=== PATIENT | male | born 1930 | race Caucasian/White ===

== ENCOUNTER 2016-08-22 13:35 | Inpatient (IN) | payer MEDICARE ==
[~2016-08-22] VITALS: Ht 180.3 cm; Wt 65.5 kg
[2016-08-22 16:00] VITALS: BP 122/73
--- NOTE | 2016-08-22 16:34 | PDOC2 ---
CARDIAC CONSULT DATE OF CONSULT Date of Consult DATE: 08/22/16 TIME: 16:14 REASON FOR CONSULT Reason for Consult: ACS/CHF HISTORY OF PRESENT ILLNESS HISTORY OF PRESENT ILLNESS 86 yo male reports chest pain that kept him up all night last night until finally being relieved at [facility] with one SLNTG. Pain free now. Reports he has had progressive angina with exertion over the last several weeks, along with orthopnea and PND. He apparently had a cardiac work-up last year at [place] and was told that he has "an enlarged heart" and might "need a stent", but he refused further eval based upon his CKD and the risk of ALIE after cath. The patient has no prior history or record of care here or at [facility]. PAST MEDICAL HISTORY Cardiovascular: Other (Cardiomyopathy NOS) Renal/: Chronic renal failure (Follows with outside Nephro) SOCIAL HISTORY Smoke: No ROS PSYCHOLOGICAL ROS: YES: Memory difficulties Cardiovascular: yes Chest Pain, yes Orthopnea, yes Paroxysmal Noc. Dyspnea, No Edema, No Lt Headedness, No Palpitations PHYSICAL EXAM General: Alert, Cooperative, No acute distress Heart: Other (Early systolic murmur, louder with PVC, at RUSB. Soft apical diastolic murmur. PMI diminished. No RV heave.) Abdomen: Normal bowel sounds, Soft Extremities: No edema Skin: No significant lesion Neuro: Other (No focal deficit) EKG EKG ST at 100, anterior and apical q waves with ST elevation, denoting age indeterminate ME ASSESSMENT/PLAN ASSESSMENT/PLAN 1) Troponin positive ACS 2) CHF, probably systolic 3) CKD stage 3 4) Sinus tachycardia --Will initiate ACS protocol with anticoagulation and DAPT. Will use heparin drip given CKD. No current chest pain so EKG indicates completed ME and/or cardiomyopathy. Will cath urgently if has recurrent refractory ischemic signs/ symptoms. Troponin peaked at [facility] so no need to follow serially here, unless there is recurrent ischemia suspicion. --Beta veto given his relative tachycardia. Await home med list from daughter. Suspect he is on a beta veto and may be demonstrating beta veto "withdrawal." --Obtain echo. --Cardiac diet with Na < 2 grams per day --Nephro consult in light of probable invasive cardiac eval, contrast load, and CKD. Will defer diuresis decisions to them. Does not appear excessively volume overloaded now after lasix at [facility]. Total time with patient, including more than half counseling on his condition and therapeutic options, coordinating care on the unit, discussing with nursing , family and ED Dr at [facility], is 55 minutes. Problems: BERRY RICO DO Aug 22, 2016 16:34
[2016-08-22] MEDS ORDERED: HEPARIN 25,000UTS/500ML PREMIX 500 ML IV ONE (16:45)
[2016-08-22] MEDS ORDERED: TICAGRELOR 90 MG TABLET. PO SCH (17:00)
[2016-08-22] MEDS ORDERED: HEPARIN 25,000UTS/500ML PREMIX 500 ML IV PRN ×2 (17:15→17:30)
[2016-08-22] MEDS ORDERED: ASPIRIN 81 MG TAB.CHEW PO ONE (17:30)
--- NOTE | 2016-08-22 17:42 | PDOC1 ---
History and Physical Date of Admission Date of Admission 08/22/16 Identification/Chief Complaint Chief Complaint chest pain Problems: Source Source: Chart review, Patient History of Present Illness History of Present Illness 86yo M, was sent from [facility] for high troponin. pt has not fu with any PCP and not taking meds for 3 years. was seen for chest pain before, was told may need a "stent" , but didnot get it since CKD. he has been having chest pain for 2 days, substernal, sharp, no radiation, no nausea or diaphoresis, no radiation. + mild sob with the chest pain. Troponin was 1.2 in [facility], now pain free with nitro in [facility]. Past Medical History Cardiovascular: HTN, Other (Cardiomyopathy NOS) Renal/: Chronic renal failure (Follows with outside Nephro) Family History Family History: Diabetes Social History Smoke: No ALCOHOL: none Drugs: None Current Medications Current Medications Current Medications Medications (Trade) Dose Ordered Sig/Dylan Start Time Stop Time Status Last Admin Dose Admin Aspirin (Children'S Aspirin) 81 mg DAILYWBKFT 08/23/16 08:00 Aspirin 324 mg 324 mg 1X ONCE 08/22/16 17:30 08/22/16 17:31 DC Heparin Sodium/ Dextrose 500 ml @ 0 mls/hr CONT PRN 08/22/16 17:30 Metoprolol Tartrate (Lopressor) 25 mg BID 08/22/16 17:00 Ticagrelor (Brilinta) 90 mg BID 08/22/16 17:00 Cancel Allergies Allergies Allergies Coded Allergies Type Severity Reaction Last Updated Verified No Known Drug Allergies 08/22/16 No ROS Review of System CONSTITUTIONAL: No fever or chills EYES: No recent changes SKIN: No rash or itching CARDIOVASCULAR: No chest pain, syncope, palpitations, or edema RESPIRATORY: No SOB or cough GASTROINTESTINAL: No nausea, vomiting or abdominal pain NEUROLOGICAL: No headaches or weakness ENDOCRINE: No cold or heat intolerance GENITOURINARY: No urgency or frequency of urination MUSCULOSKELETAL: No back pain or joint pain LYMPHATICS: No enlarged lymph nodes PSYCHIATRIC: No anxiety or depression Physical Exam Physical Exam GEN.: No apparent distress. Alert and oriented. HEENT: Head is normocephalic, atraumatic NECK: Supple. LUNGS: Clear to auscultation. HEART: RRR, S1, S2 present. Peripheral pulses intact ABDOMEN: Soft, nontender. Positive bowel sounds. EXTREMITIES: Without any cyanosis. NEUROLOGIC: Normal speech, normal tone PSYCHIATRIC: Normal affect, normal mood. SKIN: No ulcerations VTE Prophylaxis Ordered VTE Prophylaxis Devices: Yes VTE Pharmacological Prophylaxi: No Assessment/Plan Assessment/Plan 1 . CHEST PAIN, NSTEMI 2. possible chf 3. h/o dm2 4. htn 5. ckd3 plan: 1. fu with card, on metoprolol, asa, brilinda now heparin drip 2. check labs, ce, hba1c. 3. echo 4. need cath likely 5. renal consult RACHANA JAMES MD Aug 22, 2016 17:42
[2016-08-22] MEDS ORDERED: ONDANSETRON PF 4 MG/2 ML VIAL. IV PRN (17:45)
[2016-08-22] MEDS: METOPROLOL TART IMMED RELEASE 25 MG TABLET PO SCH (17:45)
[2016-08-22] MEDS ORDERED: ACETAMINOPHEN 325 MG TABLET. PO PRN (17:45)
[2016-08-22] MEDS ORDERED: HYDROCODONE/APAP 5/325MG TABLET. PO PRN (17:45)
[2016-08-22] MEDS ORDERED: HEPARIN for IV BOLUS 10,000 UNIT/10 ML VIAL. IV PRN (18:00)
[2016-08-22] MEDS ORDERED: TICAGRELOR 90 MG TABLET. PO ONE (18:00)
[2016-08-22] MEDS: HEPARIN 25,000UTS/500ML PREMIX 500 ML IV PRN (18:01)
--- NOTE | 2016-08-22 18:29 | PDOC2 ---
CONSULT Date of Consult Date of Consult DATE: 08/22/16 TIME: 18:27 Past Medical History Cardiovascular: HTN, Other (Cardiomyopathy NOS) Renal/: Chronic renal failure (Follows with outside Nephro) Family History Family History: Diabetes Social History No ALCOHOL: none Drugs: None Current Problem List Problem List Problems Medical Problems: (1) Chest pain Status: Acute Current Medications Current Medications Current Medications Heparin Sodium/ Dextrose 500 ml @ 0 mls/hr 1X ONCE IV ; Start 08/22/16 at 16:45 ; Stop 08/22/16 at 16:46; Status Cancel Metoprolol Tartrate (Lopressor) 25 mg BID PO Last administered on 08/22/16 17: 45; Start 08/22/16 at 17:00 Ticagrelor (Brilinta) 90 mg BID PO ; Start 08/22/16 at 17:00; Status Cancel Aspirin (Children'S Aspirin) 81 mg DAILYWBKFT PO ; Start 08/23/16 at 08:00 Aspirin 324 mg 324 mg 1X ONCE PO Last administered on 08/22/16 17:44; Start 08/22/16 at 17:30; Stop 08/22/16 at 17:31; Status DC Heparin Sodium/ Dextrose 500 ml @ 0 mls/hr CONT PRN IV SEE I/O RECORD; Start at 17:15; Status Cancel Heparin Sodium/ Dextrose 500 ml @ 0 mls/hr CONT PRN IV SEE I/O RECORD; Start at 17:30; Status Cancel Ticagrelor (Brilinta) 90 mg BID@05,17 PO ; Start 08/23/16 at 05:00 Ticagrelor 180 mg 180 mg 1X ONCE PO Last administered on 08/22/16 17:44; Start 08/22/16 at 18:00; Stop 08/22/16 at 18:01; Status DC Heparin Sodium/ Dextrose 500 ml @ 0 mls/hr CONT PRN IV SEE I/O RECORD Last administered on 08/22/16 18:01; Start 08/22/16 at 18:00 Heparin Sodium (Porcine) 1,650 unit PRN Q6HRS PRN IV FOR UFH LEVEL LESS THAN 0.2; Start 08/22/16 at 18:00 Ondansetron HCl (Zofran) 4 mg PRN Q6HRS PRN IV NAUSEA/VOMITING; Start 08/22/16 at 17:45 Morphine Sulfate 1 mg PRN Q1HR PRN IV PAIN; Start 08/22/16 at 17:45 Acetaminophen/ Hydrocodone Bitart (Lortab 5/325) 1 tab PRN Q4HRS PRN PO MILD PAIN, 2ND CHOICE; Start 08/22/16 at 17:45 Acetaminophen (Tylenol) 650 mg PRN Q6HRS PRN PO Headaches, Temp > 101.5F; Start 08/22/16 at 17:45 Allergies Allergies: Coded Allergies: No Known Drug Allergies (Unverified , 08/22/16) Vitals VITALS Vital Signs Date Time Temp Pulse Resp B/P Pulse Ox O2 Delivery O2 Flow Rate FiO2 08/22/16 17:45 112 122/73 Assessment/Plan Assessment/Plan RENAL CONSULT / FABIENNE Dictated. # [id number] MELANIE LOVING MD Aug 22, 2016 18:29
[2016-08-22 19:04] LABS: CHOLESTEROL/HDL RATIO 2.9
[2016-08-22 19:25] LABS: CKMB INDEX 4.2 % (0-4); CKMB MASS 4.4 ng/mL (0.0-3.6)
[2016-08-22 19:45] VITALS: BP 134/94
[2016-08-22 19:46] LABS: ALBUMIN 3.7 g/dL (3.4-5.0); TOTAL PROTEIN 7.4 g/dL (6.4-8.2)
[2016-08-22 19:47] LABS: CALCIUM 9.2 mg/dL (8.5-10.1); CREATININE 1.8 mg/dL (0.7-1.3); POTASSIUM 4.4 mmol/L (3.5-5.1); TOTAL BILIRUBIN 0.9 mg/dL (0.2-1.0)
[2016-08-22] MEDS: MORPHINE SULFATE 2 MG/ML DISP.SYRIN. IV PRN ×2 (20:14→21:34)
[2016-08-22 20:33] LABS: RED BLOOD COUNT 4.22 x10^6/uL (4.30-5.70); WHITE BLOOD COUNT 11.3 x10^3/uL (4.0-11.0)
[2016-08-22 20:34] LABS: BASO % 1 % (0-3); EOS % 1 % (0-3); HEMATOCRIT 38.4 % (39.0-53.0); HEMOGLOBIN 12.5 g/dL (13.0-17.5); LYMPH # 2.6 x10^3/uL (1.0-4.8); LYMPH % 23 % (24-48); MEAN CORPUSCULAR HEMOGLOBIN 30 pg (25-35); MEAN CORPUSCULAR HGB CONC 33 g/dL (31-37); MEAN CORPUSCULAR VOLUME 91 fL (79-100); MONO % 10 % (0-9); NEUT % 66 % (31-73); PLATELET COUNT 109 x10^3/uL (140-400); RED CELL DISTRIBUTION WIDTH 14.2 % (11.5-14.5)
[2016-08-22 20:35] LABS: BASO # 0.1 x10^3/uL (0.0-0.2)
[2016-08-22 20:38] LABS: PLT ESTIMATE DECREASED (ADEQUATE)
[2016-08-22] MEDS: ATORVASTATIN CALCIUM 40 MG TABLET. PO SCH (20:48)
[2016-08-22] MEDS ORDERED: NITROGLYCERIN PREMIX 250 ML IV PRN (22:15)
[2016-08-22 23:08] VITALS: BP 168/100
--- NOTE | 2016-08-22 23:28 | EKG ---
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
[2016-08-22 23:35] VITALS: BP 155/80
[2016-08-23] VITALS (9 sets, daily range): BP systolic 105–153; BP diastolic 62–90
[2016-08-23] MEDS: HEPARIN 25,000UTS/500ML PREMIX 500 ML IV PRN (03:16)
[2016-08-23] MEDS: TICAGRELOR 90 MG TABLET. PO SCH ×2 (05:00→17:15)
[2016-08-23] MEDS: METOPROLOL TART IMMED RELEASE 25 MG TABLET PO SCH ×3 (08:41→17:15)
[2016-08-23] MEDS: ASPIRIN 81 MG TAB.CHEW PO SCH (08:42)
--- NOTE | 2016-08-23 13:01 | PDOC ---
CARDIO Progress Notes Subjective Comments: Episode of CP last night requiring Nitrodrip. Able to d/c drip this am. Vitals Vitals Vital Signs Date Time Temp Pulse Resp B/P Pulse Ox O2 Delivery O2 Flow Rate FiO2 08/23/16 11:34 98.3 96 18 105/62 95 Room Air 98.3 08/23/16 07:58 2.0 Weight Weight [ ] Input and Output Intake and Output Intake and Output 08/23/16 07:00 Intake Total 1055.2 ml Output Total 625 ml Balance 430.2 ml Intake Oral 850 ml IV Total 205.2 ml Output Urine Total 625 ml # Voids 1 Laboratory Labs Laboratory Tests Test 08/22/16 17:39 08/22/16 18:00 08/22/16 18:15 08/23/16 01:00 Triglycerides Level 69mg/dL (0-150) Cholesterol Level 207mg/dL (0-200) LDL Cholesterol, Calculated 122mg/dL (0-100) VLDL Cholesterol, Calculated 14mg/dL (0-40) HDL Cholesterol 71mg/dL (40-60) Cholesterol/HDL Ratio 2.9 Sodium Level 143mmol/L (136-145) Potassium Level 4.4mmol/L (3.5-5.1) Chloride Level 105mmol/L (98-107) Carbon Dioxide Level 24mmol/L (21-32) Anion Gap 14 (6-14) Blood Urea Nitrogen 37mg/dL (8-26) Creatinine 1.8mg/dL (0.7-1.3) Estimated GFR (Cockcroft-Gault) 36.0 BUN/Creatinine Ratio 21 (6-20) Glucose Level 114mg/dL (70-99) Calcium Level 9.2mg/dL (8.5-10.1) Total Bilirubin 0.9mg/dL (0.2-1.0) Aspartate Amino Transf (AST/SGOT) 28U/L (15-37) Alanine Aminotransferase (ALT/SGPT) 21U/L (16-63) Alkaline Phosphatase 82U/L (46-116) Creatine Kinase 105U/L (39-308) Creatine Kinase MB (Mass) 4.4ng/mL (0.0-3.6) Creatine Kinase MB Relative Index 4.2% (0-4) Total Protein 7.4g/dL (6.4-8.2) Albumin 3.7g/dL (3.4-5.0) Albumin/Globulin Ratio 1.0 (1.0-1.7) White Blood Count 11.3x10^3/uL (4.0-11.0) Red Blood Count 4.22x10^6/uL (4.30-5.70) Hemoglobin 12.5g/dL (13.0-17.5) Hematocrit 38.4% (39.0-53.0) Mean Corpuscular Volume 91fL (79-100) Mean Corpuscular Hemoglobin 30pg (25-35) Mean Corpuscular Hemoglobin Concent 33g/dL (31-37) Red Cell Distribution Width 14.2% (11.5-14.5) Platelet Count 109x10^3/uL (140-400) Neutrophils (%) (Auto) 66% (31-73) Lymphocytes (%) (Auto) 23% (24-48) Monocytes (%) (Auto) 10% (0-9) Eosinophils (%) (Auto) 1% (0-3) Basophils (%) (Auto) 1% (0-3) Neutrophils # (Auto) 7.4x10^3uL (1.8-7.7) Lymphocytes # (Auto) 2.6x10^3/uL (1.0-4.8) Monocytes # (Auto) 1.2x10^3/uL (0.0-1.1) Eosinophils # (Auto) 0.1x10^3/uL (0.0-0.7) Basophils # (Auto) 0.1x10^3/uL (0.0-0.2) Platelet Estimate Decreased (ADEQUATE) Giant Platelets Mod Troponin I Quantitative 0.964ng/mL (0.000-0.055) Heparin Anti-Xa Act, Unfractionated 0.12IU/mL (0.30-0.70) Test 08/23/16 10:00 Heparin Anti-Xa Act, Unfractionated 0.44IU/mL (0.30-0.70) Physical Exam Other Exams No change compared to yesterday. Assessment Assessment Troponin positive ACS Cardiomyopathy Plan Plan As outlined in consult. Plan cath tomorrow. Appreciate nephro input. BERRY RICO DO Aug 23, 2016 13:01
[2016-08-23] MEDS: MORPHINE SULFATE 2 MG/ML DISP.SYRIN. IV PRN ×2 (14:06→17:17)
--- NOTE | 2016-08-23 14:58 | PDOC ---
PROGRESS NOTES Chief Complaint Chief Complaint 1 . CHEST PAIN, NSTEMI 2. possible chf 3. h/o dm2 4. htn 5. ckd3 6. AMS, sundown syndrome possile with mild dementia? plan: 1. fu with card, on metoprolol, asa, brilinda now heparin drip, nitro drip 2. check labs, ce, hba1c. 3. echo 4. need cath likely 5. renal consult neuro consult DNR History of Present Illness History of Present Illness hallcucination today AMS last night with confusion on heparin drip chest pain again last night on nitro drip Vitals Vitals Vital Signs Date Time Temp Pulse Resp B/P Pulse Ox O2 Delivery O2 Flow Rate FiO2 08/23/16 14:36 16 Room Air 08/23/16 14:06 2.0 08/23/16 11:34 98.3 96 105/62 95 98.3 Physical Exam General: Alert, Cooperative, No acute distress Heart: Regular rate, Other (Early systolic murmur, louder with PVC, at RUSB. Soft apical diastolic murmur. PMI diminished. No RV heave.) Lungs: Clear Abdomen: Normal bowel sounds, Soft Extremities: No edema Skin: No significant lesion Labs LABS Laboratory Tests Test 08/22/16 17:39 08/22/16 18:00 08/22/16 18:15 08/23/16 01:00 Triglycerides Level 69mg/dL (0-150) Cholesterol Level 207mg/dL (0-200) LDL Cholesterol, Calculated 122mg/dL (0-100) VLDL Cholesterol, Calculated 14mg/dL (0-40) HDL Cholesterol 71mg/dL (40-60) Cholesterol/HDL Ratio 2.9 Sodium Level 143mmol/L (136-145) Potassium Level 4.4mmol/L (3.5-5.1) Chloride Level 105mmol/L (98-107) Carbon Dioxide Level 24mmol/L (21-32) Anion Gap 14 (6-14) Blood Urea Nitrogen 37mg/dL (8-26) Creatinine 1.8mg/dL (0.7-1.3) Estimated GFR (Cockcroft-Gault) 36.0 BUN/Creatinine Ratio 21 (6-20) Glucose Level 114mg/dL (70-99) Calcium Level 9.2mg/dL (8.5-10.1) Total Bilirubin 0.9mg/dL (0.2-1.0) Aspartate Amino Transf (AST/SGOT) 28U/L (15-37) Alanine Aminotransferase (ALT/SGPT) 21U/L (16-63) Alkaline Phosphatase 82U/L (46-116) Creatine Kinase 105U/L (39-308) Creatine Kinase MB (Mass) 4.4ng/mL (0.0-3.6) Creatine Kinase MB Relative Index 4.2% (0-4) Total Protein 7.4g/dL (6.4-8.2) Albumin 3.7g/dL (3.4-5.0) Albumin/Globulin Ratio 1.0 (1.0-1.7) White Blood Count 11.3x10^3/uL (4.0-11.0) Red Blood Count 4.22x10^6/uL (4.30-5.70) Hemoglobin 12.5g/dL (13.0-17.5) Hematocrit 38.4% (39.0-53.0) Mean Corpuscular Volume 91fL (79-100) Mean Corpuscular Hemoglobin 30pg (25-35) Mean Corpuscular Hemoglobin Concent 33g/dL (31-37) Red Cell Distribution Width 14.2% (11.5-14.5) Platelet Count 109x10^3/uL (140-400) Neutrophils (%) (Auto) 66% (31-73) Lymphocytes (%) (Auto) 23% (24-48) Monocytes (%) (Auto) 10% (0-9) Eosinophils (%) (Auto) 1% (0-3) Basophils (%) (Auto) 1% (0-3) Neutrophils # (Auto) 7.4x10^3uL (1.8-7.7) Lymphocytes # (Auto) 2.6x10^3/uL (1.0-4.8) Monocytes # (Auto) 1.2x10^3/uL (0.0-1.1) Eosinophils # (Auto) 0.1x10^3/uL (0.0-0.7) Basophils # (Auto) 0.1x10^3/uL (0.0-0.2) Platelet Estimate Decreased (ADEQUATE) Giant Platelets Mod Troponin I Quantitative 0.964ng/mL (0.000-0.055) Heparin Anti-Xa Act, Unfractionated 0.12IU/mL (0.30-0.70) Test 08/23/16 10:00 08/23/16 13:10 Heparin Anti-Xa Act, Unfractionated 0.44IU/mL (0.30-0.70) Troponin I Quantitative 0.738ng/mL (0.000-0.055) Review of Systems Review of Systems no fever, chills, sob or chest pain Assessment and Plan Assessmemt and Plan Problems Medical Problems: (1) Chest pain Status: Acute Problems: Comment Review of Relevant I have reviewed the following items jamison (where applicable) has been applied. Labs Laboratory Tests Test 08/22/16 17:39 08/22/16 18:00 08/22/16 18:15 08/23/16 01:00 Triglycerides Level 69mg/dL (0-150) Cholesterol Level 207mg/dL (0-200) LDL Cholesterol, Calculated 122mg/dL (0-100) VLDL Cholesterol, Calculated 14mg/dL (0-40) HDL Cholesterol 71mg/dL (40-60) Cholesterol/HDL Ratio 2.9 Sodium Level 143mmol/L (136-145) Potassium Level 4.4mmol/L (3.5-5.1) Chloride Level 105mmol/L (98-107) Carbon Dioxide Level 24mmol/L (21-32) Anion Gap 14 (6-14) Blood Urea Nitrogen 37mg/dL (8-26) Creatinine 1.8mg/dL (0.7-1.3) Estimated GFR (Cockcroft-Gault) 36.0 BUN/Creatinine Ratio 21 (6-20) Glucose Level 114mg/dL (70-99) Calcium Level 9.2mg/dL (8.5-10.1) Total Bilirubin 0.9mg/dL (0.2-1.0) Aspartate Amino Transf (AST/SGOT) 28U/L (15-37) Alanine Aminotransferase (ALT/SGPT) 21U/L (16-63) Alkaline Phosphatase 82U/L (46-116) Creatine Kinase 105U/L (39-308) Creatine Kinase MB (Mass) 4.4ng/mL (0.0-3.6) Creatine Kinase MB Relative Index 4.2% (0-4) Total Protein 7.4g/dL (6.4-8.2) Albumin 3.7g/dL (3.4-5.0) Albumin/Globulin Ratio 1.0 (1.0-1.7) White Blood Count 11.3x10^3/uL (4.0-11.0) Red Blood Count 4.22x10^6/uL (4.30-5.70) Hemoglobin 12.5g/dL (13.0-17.5) Hematocrit 38.4% (39.0-53.0) Mean Corpuscular Volume 91fL (79-100) Mean Corpuscular Hemoglobin 30pg (25-35) Mean Corpuscular Hemoglobin Concent 33g/dL (31-37) Red Cell Distribution Width 14.2% (11.5-14.5) Platelet Count 109x10^3/uL (140-400) Neutrophils (%) (Auto) 66% (31-73) Lymphocytes (%) (Auto) 23% (24-48) Monocytes (%) (Auto) 10% (0-9) Eosinophils (%) (Auto) 1% (0-3) Basophils (%) (Auto) 1% (0-3) Neutrophils # (Auto) 7.4x10^3uL (1.8-7.7) Lymphocytes # (Auto) 2.6x10^3/uL (1.0-4.8) Monocytes # (Auto) 1.2x10^3/uL (0.0-1.1) Eosinophils # (Auto) 0.1x10^3/uL (0.0-0.7) Basophils # (Auto) 0.1x10^3/uL (0.0-0.2) Platelet Estimate Decreased (ADEQUATE) Giant Platelets Mod Troponin I Quantitative 0.964ng/mL (0.000-0.055) Heparin Anti-Xa Act, Unfractionated 0.12IU/mL (0.30-0.70) Test 08/23/16 10:00 08/23/16 13:10 Heparin Anti-Xa Act, Unfractionated 0.44IU/mL (0.30-0.70) Troponin I Quantitative 0.738ng/mL (0.000-0.055) Laboratory Tests Test 08/22/16 17:39 08/22/16 18:00 08/22/16 18:15 08/23/16 01:00 Triglycerides Level 69mg/dL (0-150) Cholesterol Level 207mg/dL (0-200) LDL Cholesterol, Calculated 122mg/dL (0-100) VLDL Cholesterol, Calculated 14mg/dL (0-40) HDL Cholesterol 71mg/dL (40-60) Cholesterol/HDL Ratio 2.9 Sodium Level 143mmol/L (136-145) Potassium Level 4.4mmol/L (3.5-5.1) Chloride Level 105mmol/L (98-107) Carbon Dioxide Level 24mmol/L (21-32) Anion Gap 14 (6-14) Blood Urea Nitrogen 37mg/dL (8-26) Creatinine 1.8mg/dL (0.7-1.3) Estimated GFR (Cockcroft-Gault) 36.0 BUN/Creatinine Ratio 21 (6-20) Glucose Level 114mg/dL (70-99) Calcium Level 9.2mg/dL (8.5-10.1) Total Bilirubin 0.9mg/dL (0.2-1.0) Aspartate Amino Transf (AST/SGOT) 28U/L (15-37) Alanine Aminotransferase (ALT/SGPT) 21U/L (16-63) Alkaline Phosphatase 82U/L (46-116) Creatine Kinase 105U/L (39-308) Creatine Kinase MB (Mass) 4.4ng/mL (0.0-3.6) Creatine Kinase MB Relative Index 4.2% (0-4) Total Protein 7.4g/dL (6.4-8.2) Albumin 3.7g/dL (3.4-5.0) Albumin/Globulin Ratio 1.0 (1.0-1.7) White Blood Count 11.3x10^3/uL (4.0-11.0) Red Blood Count 4.22x10^6/uL (4.30-5.70) Hemoglobin 12.5g/dL (13.0-17.5) Hematocrit 38.4% (39.0-53.0) Mean Corpuscular Volume 91fL (79-100) Mean Corpuscular Hemoglobin 30pg (25-35) Mean Corpuscular Hemoglobin Concent 33g/dL (31-37) Red Cell Distribution Width 14.2% (11.5-14.5) Platelet Count 109x10^3/uL (140-400) Neutrophils (%) (Auto) 66% (31-73) Lymphocytes (%) (Auto) 23% (24-48) Monocytes (%) (Auto) 10% (0-9) Eosinophils (%) (Auto) 1% (0-3) Basophils (%) (Auto) 1% (0-3) Neutrophils # (Auto) 7.4x10^3uL (1.8-7.7) Lymphocytes # (Auto) 2.6x10^3/uL (1.0-4.8) Monocytes # (Auto) 1.2x10^3/uL (0.0-1.1) Eosinophils # (Auto) 0.1x10^3/uL (0.0-0.7) Basophils # (Auto) 0.1x10^3/uL (0.0-0.2) Platelet Estimate Decreased (ADEQUATE) Giant Platelets Mod Troponin I Quantitative 0.964ng/mL (0.000-0.055) Heparin Anti-Xa Act, Unfractionated 0.12IU/mL (0.30-0.70) Test 08/23/16 10:00 08/23/16 13:10 Heparin Anti-Xa Act, Unfractionated 0.44IU/mL (0.30-0.70) Troponin I Quantitative 0.738ng/mL (0.000-0.055) Medications Current Medications Heparin Sodium/ Dextrose 500 ml @ 0 mls/hr 1X ONCE IV ; Start 08/22/16 at 16:45 ; Stop 08/22/16 at 16:46; Status Cancel Metoprolol Tartrate (Lopressor) 25 mg BID PO Last administered on 08/23/16 08: 41; Start 08/22/16 at 17:00; Stop 08/23/16 at 10:44; Status DC Ticagrelor (Brilinta) 90 mg BID PO ; Start 08/22/16 at 17:00; Status Cancel Aspirin (Children'S Aspirin) 81 mg DAILYWBKFT PO Last administered on 08:42; Start 08/23/16 at 08:00 Aspirin 324 mg 324 mg 1X ONCE PO Last administered on 08/22/16 17:44; Start 08/22/16 at 17:30; Stop 08/22/16 at 17:31; Status DC Heparin Sodium/ Dextrose 500 ml @ 0 mls/hr CONT PRN IV SEE I/O RECORD; Start at 17:15; Status Cancel Heparin Sodium/ Dextrose 500 ml @ 0 mls/hr CONT PRN IV SEE I/O RECORD; Start at 17:30; Status Cancel Ticagrelor (Brilinta) 90 mg BID@05,17 PO ; Start 08/23/16 at 05:00 Ticagrelor 180 mg 180 mg 1X ONCE PO Last administered on 08/22/16 17:44; Start 08/22/16 at 18:00; Stop 08/22/16 at 18:01; Status DC Heparin Sodium/ Dextrose 500 ml @ 0 mls/hr CONT PRN IV SEE I/O RECORD Last administered on 08/23/16 03:16; Start 08/22/16 at 18:00 Heparin Sodium (Porcine) 1,650 unit PRN Q6HRS PRN IV FOR UFH LEVEL LESS THAN 0.2 Last administered on 08/23/16 03:17; Start 08/22/16 at 18:00 Ondansetron HCl (Zofran) 4 mg PRN Q6HRS PRN IV NAUSEA/VOMITING; Start 08/22/16 at 17:45 Morphine Sulfate 1 mg PRN Q1HR PRN IV PAIN Last administered on 08/23/16 14:06 ; Start 08/22/16 at 17:45 Acetaminophen/ Hydrocodone Bitart (Lortab 5/325) 1 tab PRN Q4HRS PRN PO MILD PAIN, 2ND CHOICE Last administered on 08/22/16 20:13; Start 08/22/16 at 17:45 Acetaminophen (Tylenol) 650 mg PRN Q6HRS PRN PO Headaches, Temp > 101.5F Last administered on 08/23/16 07:30; Start 08/22/16 at 17:45 Atorvastatin Calcium 40 mg 40 mg QHS PO Last administered on 08/22/16 20:48; Start 08/22/16 at 21:00 Nitroglycerin/ Dextrose (Nitroglycerin Drip) 250 ml @ 0 mls/hr CONT PRN IV SEE I/O RECORD Last administered on 08/22/16t 22:43; Start 08/22/16 at 22:15 Metoprolol Tartrate (Lopressor) 25 mg Q6HRS PO ; Start 08/23/16 at 12:00 Haloperidol Lactate (Haldol) 1 mg PRN Q4HRS PRN IVP AGITATION; Start 08/23/16 at 14:00 Vitals/I & O Vital Sign - Last 24 Hours 08/22/16 08/22/16 08/22/16 08/22/16 16:00 16:00 17:45 19:45 Temp 97.8 97.5 97.8 97.5 Pulse 112 112 102 Resp 18 30 B/P 122/73 122/73 134/94 Pulse Ox 95 97 O2 Delivery Room Air Room Air Room Air 08/22/16 08/22/16 08/22/16 08/22/16 20:00 20:13 20:14 21:13 O2 Delivery Nasal Cannula Nasal Cannula Nasal Cannula Nasal Cannula O2 Flow Rate 2.0 2.0 2.0 2.0 08/22/16 08/22/16 08/22/16 08/22/16 21:34 22:04 23:08 23:35 Temp 98.7 98.7 Pulse 111 99 Resp 35 B/P 168/100 155/80 Pulse Ox 93 O2 Delivery Nasal Cannula Nasal Cannula O2 Flow Rate 2.0 2.0 2.0 08/23/16 08/23/16 08/23/16 08/23/16 00:08 01:08 03:08 03:50 Temp 98.2 98.2 Pulse 111 113 109 111 Resp 31 B/P 153/84 147/89 138/90 138/90 Pulse Ox 98 O2 Delivery Nasal Cannula O2 Flow Rate 2.0 08/23/16 08/23/16 08/23/16 08/23/16 05:08 07:58 08:00 08:41 Temp 97.7 97.7 Pulse 111 106 109 Resp 31 B/P 128/77 131/81 121/66 Pulse Ox 92 O2 Delivery Nasal Cannula Room Air O2 Flow Rate 2.0 08/23/16 08/23/16 08/23/16 11:34 14:06 14:36 Temp 98.3 98.3 Pulse 96 Resp 18 18 16 B/P 105/62 Pulse Ox 95 O2 Delivery Room Air Nasal Cannula Room Air O2 Flow Rate 2.0 Intake and Output 08/22/16 08/22/16 08/23/16 15:00 23:00 07:00 Intake Total 450 ml 605.2 ml Output Total 625 ml 0 ml Balance -175 ml 605.2 ml RACHANA JAMES MD Aug 23, 2016 14:58
[2016-08-23] MEDS: HALOPERIDOL LACT 5 MG/ML VIAL. IVP PRN ×2 (15:26→19:49)
[2016-08-23 15:48] LABS: CALCIUM 8.8 mg/dL (8.5-10.1); CREATININE 2.2 mg/dL (0.7-1.3); GFR 28.6; POTASSIUM 4.5 mmol/L (3.5-5.1)
--- NOTE | 2016-08-23 16:27 | PDOC ---
Provider Note Provider Note RENAL F/U : FABIENNE S : Doing fair at best. Very confused. Not taking PO Slightly weak and frail. No SOA No active CP. O : VSS Afebrile. Alert. Confused. Neck : Supple Lungs : Non labored. Decreased bases. CVS : RRR Abd : Benign appearance. Ext : No CCE No major edema. Neuro : Grossly intact. Labs reviewed. ARF/ATN : Cr higher. Will need IVF and Cr below 2 to consider CATH. HTN with CKD CKD III MENTAL STATUS CHANGE. IVF. Labs. I/Os Hold CATH till renal functions improve unless deemed urgent by cardiology. d/w spouse. MELANIE LOVING MD Aug 23, 2016 16:27
--- NOTE | 2016-08-23 18:56 | CONS ---
DATE OF CONSULTATION: REASON FOR CONSULTATION: CKD. HISTORY OF PRESENT ILLNESS: The patient is a very pleasant 86-year-old gentleman with history of hypertension and chronic kidney disease stage 3. I was asked to see him in anticipation of a possible coronary angiogram. Plan for workup of chest pain, which was his main presenting illness given his chronic kidney disease. Currently, the patient is chest pain free. Denies any headache, lightheadedness, dizziness. No shortness of breath. No abdominal or back pain. No nausea, vomiting. No other related complaints. PAST MEDICAL HISTORY: Significant for: 1. Hypertension with CKD. 2. Chronic kidney disease, stage 3. 3. Degenerative joint disease. He denies any history of diabetes. She has got a history of congestive heart failure, but does not know the details. He normally follows [facility]. PAST SURGICAL HISTORY: No recent major or minor surgeries. FAMILY HISTORY: Noncontributory due to advanced age. SOCIAL HISTORY: Denies tobacco, alcohol or recreational drugs. REVIEW OF SYSTEMS: As above, otherwise negative on a 10-point scale. PHYSICAL EXAMINATION: GENERAL: Elderly gentleman, in no distress or discomfort. VITAL SIGNS: Stable. He is afebrile. HEENT: Pupils reactive. Tongue midline. NECK: Supple. LUNGS: Fairly good air entry. No rhonchi, rales or wheezing. CARDIOVASCULAR: Normal S1, S2. No gallop, no rub. ABDOMEN: Soft, nontender, no rebound, guarding or masses. No obvious hepatosplenomegaly. EXTREMITIES: Without edema. NEUROLOGIC: Nonfocal. LABORATORY DATA: Pending. IMPRESSION: 1. Chronic kidney disease, stage 3 by history. We will find obtain baseline labs to ascertain how close he is to his baseline creatinine levels. 2. Hypertension, well controlled. 3. Chest pains, appeared atypical by description. Cardiology following. I told the family that if a cath becomes imperative full workup of chest pains and possible coronary artery disease, it would be okay to proceed as long as it is adequately hydrated if permitted by CHF issues. Moreover, Mucomyst may be helpful. If a cath is mainly elective and does not take precedence in terms of symptomatology or urgency then we would like to wait until we have more data as to baseline renal status. A diagnosed catheterization without a ventriculogram with minimizing dye exposure would be the best option. Would continue to follow closely with you. I appreciate the consultation. Thank you very much for the referral. MELANIE LOVING MD DR: Connie JOB#: [id number] / [id number]
[2016-08-23] MEDS ORDERED: METOPROLOL TARTRATE 5 MG/5 ML VIAL. IVP ONE (19:00)
[2016-08-23] MEDS: ATORVASTATIN CALCIUM 40 MG TABLET. PO SCH (21:00)
[2016-08-23] MEDS: LORAZEPAM 2 MG/ML VIAL IV PRN (21:47)
[2016-08-24 03:00] VITALS: BP 130/97
[2016-08-24] MEDS: TICAGRELOR 90 MG TABLET. PO SCH ×2 (05:00→17:59)
[2016-08-24] MEDS: MORPHINE SULFATE 2 MG/ML DISP.SYRIN. IV PRN (05:15)
[2016-08-24] MEDS: METOPROLOL TART IMMED RELEASE 25 MG TABLET PO SCH ×3 (06:00→09:00)
[2016-08-24] MEDS ORDERED: ALBUTEROL SULFATE 2.5 MG/3 ML NEBU. NEB ONE (06:00)
[2016-08-24 06:31] LABS: ALBUMIN 3.4 g/dL (3.4-5.0); ALBUMIN/GLOBULIN RATIO 0.9 (1.0-1.7); CREATININE 1.9 mg/dL (0.7-1.3); GFR 33.9; POTASSIUM 4.3 mmol/L (3.5-5.1); TOTAL BILIRUBIN 0.8 mg/dL (0.2-1.0); TOTAL PROTEIN 7.1 g/dL (6.4-8.2)
[2016-08-24 07:00] VITALS: BP 148/79
--- NOTE | 2016-08-24 07:49 | EKG ---
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: ISAURA : 1930 Requested By: RACHANA JAMES Order Number: [id number] Reading MD: Mary Orlando Measurements Intervals Aspers Rate: 109 P: 64 IL: 144 QRS: -34 QRSD: 100 T: 121 QT: 352 QTc: 476 Interpretive Statements SINUS TACHYCARDIA VENTRICULAR PREMATURE COMPLEX(ES) LEFT ATRIAL ABNORMALITY ABNORMAL LEFT AXIS DEVIATION CONSIDER LEFT VENTRICULAR HYPERTROPHY QRS(T) CONTOUR ABNORMALITY CONSISTENT WITH ANTEROLATERAL INFARCT AGE UNDETERMINED CONSISTENT WITH INFERIOR INFARCT PROBABLY OLD ABNORMAL ECG RI6.01 No previous ECG available for comparison Electronically Signed On 08-26-2016 10:42:30 CDT by Mary Orlando
[2016-08-24] MEDS: ASPIRIN 81 MG TAB.CHEW PO SCH (08:59)
[2016-08-24] MEDS ORDERED: INFLUENZA VAX SCREEN BY RX. MC PRN (09:00)
[2016-08-24] MEDS ORDERED: FLU VACC QUAD 2016-17 (36MOS+)/PF 0.5 ML SYRINGE. VAX IM ONE (09:15)
--- NOTE | 2016-08-24 09:36 | PDOC ---
ASHLEY VERGARA COMPUTER NETWORKING INSTRUCTOR 08/24/16 0936: CARDIO Progress Notes Date and Time Date of Service 08/24/2016 Time of Evaluation 0934 Subjective Comments: oriented to time only today Vitals Vitals Vital Signs Date Time Temp Pulse Resp B/P Pulse Ox O2 Delivery O2 Flow Rate FiO2 08/24/16 09:00 107 148/79 08/24/16 07:00 98.0 26 96 Nasal Cannula 2.0 98.0 Weight Weight [ ] Input and Output Intake and Output Intake and Output 08/24/16 07:00 Intake Total 763.5 ml Output Total 400 ml Balance 363.5 ml Intake Oral 460 ml IV Total 303.5 ml Output Urine Total 400 ml Laboratory Labs Laboratory Tests Test 08/23/16 10:00 08/23/16 13:10 08/23/16 16:03 08/24/16 04:35 Heparin Anti-Xa Act, Unfractionated 0.44IU/mL (0.30-0.70) 0.46IU/mL (0.30-0.70) Sodium Level 138mmol/L (136-145) 139mmol/L (136-145) Potassium Level 4.5mmol/L (3.5-5.1) 4.3mmol/L (3.5-5.1) Chloride Level 102mmol/L (98-107) 101mmol/L (98-107) Carbon Dioxide Level 24mmol/L (21-32) 21mmol/L (21-32) Anion Gap 12 (6-14) 17 (6-14) Blood Urea Nitrogen 46mg/dL (8-26) 46mg/dL (8-26) Creatinine 2.2mg/dL (0.7-1.3) 1.9mg/dL (0.7-1.3) Estimated GFR (Cockcroft-Gault) 28.6 33.9 Glucose Level 150mg/dL (70-99) 148mg/dL (70-99) Calcium Level 8.8mg/dL (8.5-10.1) 9.0mg/dL (8.5-10.1) Troponin I Quantitative 0.738ng/mL (0.000-0.055) BUN/Creatinine Ratio 24 (6-20) Total Bilirubin 0.8mg/dL (0.2-1.0) Aspartate Amino Transf (AST/SGOT) 28U/L (15-37) Alanine Aminotransferase (ALT/SGPT) 21U/L (16-63) Alkaline Phosphatase 79U/L (46-116) Total Protein 7.1g/dL (6.4-8.2) Albumin 3.4g/dL (3.4-5.0) Albumin/Globulin Ratio 0.9 (1.0-1.7) Physical Exam HEENT: Neck Supple W Full Motion Chest: Symmetric LUNGS: Other (coarse throughout, basilar crackles posteriorly) Heart: S1S2, RRR, other (tele: SR/ST) Abdomen: Soft N/T Neurology: confused Assessment Assessment Troponin positive ACS with history of nocturnal angina Cardiomyopathy CKD dementia Plan Plan 1. cancel cath for today; became confused and bit IV tubings in half last night ; also required to be at nursing desk to calm Palliative care consult to determine goals of care ? ability to cooperate with cath procedure 2. mild posterior basilar crackles will defer diuresis to Nephrology as Cr 1.9 was 2.1 10/2015 ? benefit from Nitro patch as can not use IV 3. ? aspiration - swallow study pending converted BB to IV while NPO CAROL COHEN MD 08/24/16 1833: CARDIO Progress Notes Plan Plan Patient seen and examined. Agree with above nurse practitioner note. I had a long discussion today with the patient's family as the patient is severely demented and has difficulty with expression. Apparently according to the family and this is a rapid decline in functional capacity over the last several weeks. In the past apparently patient had expressed wishes not to have any significant cardiac interventions performed. Over the last few weeks he is also stopped taking medications. Most recently overnight he had delirium and apparently bit off his IV tubing as well. In this setting I discussed with the patient's family that given his age and comorbidities would be most appropriate to consider palliative care/ hospice. They are in agreement and will meet with our palate care team for consideration of placement. Otherwise supportive care at this present time if patient is able to take medications. He has a significant left-sided pleural effusion and severe ischemic cardio myopathy. We'll attempt gentle diuresis as tolerated. Greater than 35 minutes spent with the family discussing care in reviewing chart. ASHLEY VERGARA APRN Aug 24, 2016 09:36 CAROL COHEN MD Aug 24, 2016 18:33
--- NOTE | 2016-08-24 10:13 | PDOC2 ---
NEUROLOGY CONSULT Date of Admission Date of Admission DATE: 08/24/16 TIME: 10:09 Reason for Consult Reason for Consult: Hallucinations Referring Physician Referring Physician: Dr. Paredes PCP: Dr. Gamboa Source Source: Caregiver, Chart review, Patient History of Present Illness History of Present Illness The patient is an 86-year-old right-handed male admitted for chest pain who has been having hallucinations in the hospital. His daughter says the patient has had mental decline over the last several months. They think he has dementia. He forgets things. He has been living on his own, cooking, cleaning, driving, but he does have trouble maintaining his finances. There is no history of stroke, seizure, or head injury. Past Medical History Cardiovascular: CHF, HTN Renal/: Chronic renal insuff Endocrine: Diabetes Past Surgical History Past Surgical History: Colectomy (Colon cancer) Family History Family History: No pertinent hx Social History Social History , lives alone, no alcohol or tobacco Current Medications Current Medications Current Medications Heparin Sodium/ Dextrose 500 ml @ 0 mls/hr 1X ONCE IV ; Start 08/22/16 at 16:45 ; Stop 08/22/16 at 16:46; Status Cancel Metoprolol Tartrate (Lopressor) 25 mg BID PO Last administered on 08/23/16 08: 41; Start 08/22/16 at 17:00; Stop 08/23/16 at 10:44; Status DC Ticagrelor (Brilinta) 90 mg BID PO ; Start 08/22/16 at 17:00; Status Cancel Aspirin (Children'S Aspirin) 81 mg DAILYWBKFT PO Last administered on 08:59; Start 08/23/16 at 08:00 Aspirin 324 mg 324 mg 1X ONCE PO Last administered on 08/22/16 17:44; Start 08/22/16 at 17:30; Stop 08/22/16 at 17:31; Status DC Heparin Sodium/ Dextrose 500 ml @ 0 mls/hr CONT PRN IV SEE I/O RECORD; Start at 17:15; Status Cancel Heparin Sodium/ Dextrose 500 ml @ 0 mls/hr CONT PRN IV SEE I/O RECORD; Start at 17:30; Status Cancel Ticagrelor (Brilinta) 90 mg BID@05,17 PO Last administered on 08/23/16 17:15; Start 08/23/16 at 05:00 Ticagrelor 180 mg 180 mg 1X ONCE PO Last administered on 08/22/16 17:44; Start 08/22/16 at 18:00; Stop 08/22/16 at 18:01; Status DC Heparin Sodium/ Dextrose 500 ml @ 0 mls/hr CONT PRN IV SEE I/O RECORD Last administered on 08/23/16 03:16; Start 08/22/16 at 18:00; Stop 08/24/16 at 09:34 ; Status DC Heparin Sodium (Porcine) 1,650 unit PRN Q6HRS PRN IV FOR UFH LEVEL LESS THAN 0.2 Last administered on 08/23/16 03:17; Start 08/22/16 at 18:00; Stop at 09:34; Status DC Ondansetron HCl (Zofran) 4 mg PRN Q6HRS PRN IV NAUSEA/VOMITING; Start 08/22/16 at 17:45 Morphine Sulfate 1 mg PRN Q1HR PRN IV PAIN Last administered on 08/24/16 05:15 ; Start 08/22/16 at 17:45 Acetaminophen/ Hydrocodone Bitart (Lortab 5/325) 1 tab PRN Q4HRS PRN PO MILD PAIN, 2ND CHOICE Last administered on 08/22/16 20:13; Start 08/22/16 at 17:45 Acetaminophen (Tylenol) 650 mg PRN Q6HRS PRN PO Headaches, Temp > 101.5F Last administered on 08/23/16 07:30; Start 08/22/16 at 17:45 Atorvastatin Calcium 40 mg 40 mg QHS PO Last administered on 08/22/16 20:48; Start 08/22/16 at 21:00 Nitroglycerin/ Dextrose (Nitroglycerin Drip) 250 ml @ 0 mls/hr CONT PRN IV SEE I/O RECORD Last administered on 08/22/16 22:43; Start 08/22/16 at 22:15; Stop 08/24/16 at 09:34; Status DC Metoprolol Tartrate (Lopressor) 25 mg Q6HRS PO Last administered on 08/24/16 09:00; Start 08/23/16 at 12:00; Stop 08/24/16 at 09:34; Status DC Haloperidol Lactate (Haldol) 1 mg PRN Q4HRS PRN IVP AGITATION Last administered on 08/23/16 19:49; Start 08/23/16 at 14:00 Metoprolol Tartrate (Lopressor) 2.5 mg 1X ONCE IVP Last administered on 18:47; Start 08/23/16 at 19:00; Stop 08/23/16 at 19:01; Status DC Lorazepam (Ativan) 2 mg PRN Q1HR PRN IV For CIWA 8-14 Last administered on 08/23 21:47; Start 08/23/16 at 21:30 Albuterol Sulfate (Ventolin Neb Soln) 2.5 mg 1X ONCE NEB Last administered on 08/24/16 05:58; Start 08/24/16 at 06:00; Stop 08/24/16 at 06:01; Status DC Info (Do NOT chart on this placeholder) 1 each PRN 1X PRN MC SEE COMMENTS; Start 08/24/16 at 09:00; Status UNV Influenza Virus Vaccine Quadrival (Fluarix Quad [id number] Syringe) 0.5 ml ONCE ONCE VAX IM ; Start 08/24/16 at 09:15; Stop 08/24/16 at 09:16; Status DC Metoprolol Tartrate (Lopressor) 5 mg Q6HRS IVP ; Start 08/24/16 at 12:00 Allergies Allergies: Coded Allergies: No Known Drug Allergies (Unverified , 08/22/16) ROS Review of System Negative for fevers, chills, weight loss, hematochezia, melena, dysuria. He has had some dyspnea, the chest pain, and indigestion. Full 14-point review systems is negative. Physical Exam Physical Examination PHYSICAL EXAMINATION: Vital signs: see above. General appearance is normal and in no acute distress. HEENT: Normocephalic and nontraumatic. Eyes, nose, ears, and throat are unremarkable. Neck is supple. No lymphadenopathy. No bruits are heard over the carotid artery. No crepitus. NEUROLOGICAL EXAMINATION: Mental Status Examination: Alert. Oriented to place and person, not time. Answers questions and follows commends. Pupils are equal round and reactive to light and accommodation. Extraocular movements are intact. Visual field exam shows no defect on the direct confrontation. No motor or sensory deficits on the facial exam. Uvula in the midline and the soft palate elevated symmetrically. No deviation of the tongue to any direction. Gross hearing is normal. Shoulder shrug normal. Muscle tone is normal. Muscle strength is 5. Deep tendon reflexes are 2+. He has bilateral grasp reflexes. Plantar reflex is with flexion response bilaterally. [id number] test performance is accurate. Alternative movements are accurate. Gait not testedl. Sensory exam shows no deficits. No cerebellar signs are elicited. Vitals VITALS Vital Signs Date Time Temp Pulse Resp B/P Pulse Ox O2 Delivery O2 Flow Rate FiO2 08/24/16 09:00 107 148/79 08/24/16 07:00 98.0 26 96 Nasal Cannula 2.0 98.0 Labs Labs Laboratory Tests Test 08/22/16 17:39 08/22/16 18:00 08/22/16 18:15 08/23/16 01:00 Triglycerides Level 69mg/dL (0-150) Cholesterol Level 207mg/dL (0-200) LDL Cholesterol, Calculated 122mg/dL (0-100) VLDL Cholesterol, Calculated 14mg/dL (0-40) HDL Cholesterol 71mg/dL (40-60) Cholesterol/HDL Ratio 2.9 Sodium Level 143mmol/L (136-145) Potassium Level 4.4mmol/L (3.5-5.1) Chloride Level 105mmol/L (98-107) Carbon Dioxide Level 24mmol/L (21-32) Anion Gap 14 (6-14) Blood Urea Nitrogen 37mg/dL (8-26) Creatinine 1.8mg/dL (0.7-1.3) Estimated GFR (Cockcroft-Gault) 36.0 BUN/Creatinine Ratio 21 (6-20) Glucose Level 114mg/dL (70-99) Calcium Level 9.2mg/dL (8.5-10.1) Total Bilirubin 0.9mg/dL (0.2-1.0) Aspartate Amino Transf (AST/SGOT) 28U/L (15-37) Alanine Aminotransferase (ALT/SGPT) 21U/L (16-63) Alkaline Phosphatase 82U/L (46-116) Creatine Kinase 105U/L (39-308) Creatine Kinase MB (Mass) 4.4ng/mL (0.0-3.6) Creatine Kinase MB Relative Index 4.2% (0-4) Total Protein 7.4g/dL (6.4-8.2) Albumin 3.7g/dL (3.4-5.0) Albumin/Globulin Ratio 1.0 (1.0-1.7) White Blood Count 11.3x10^3/uL (4.0-11.0) Red Blood Count 4.22x10^6/uL (4.30-5.70) Hemoglobin 12.5g/dL (13.0-17.5) Hematocrit 38.4% (39.0-53.0) Mean Corpuscular Volume 91fL (79-100) Mean Corpuscular Hemoglobin 30pg (25-35) Mean Corpuscular Hemoglobin Concent 33g/dL (31-37) Red Cell Distribution Width 14.2% (11.5-14.5) Platelet Count 109x10^3/uL (140-400) Neutrophils (%) (Auto) 66% (31-73) Lymphocytes (%) (Auto) 23% (24-48) Monocytes (%) (Auto) 10% (0-9) Eosinophils (%) (Auto) 1% (0-3) Basophils (%) (Auto) 1% (0-3) Neutrophils # (Auto) 7.4x10^3uL (1.8-7.7) Lymphocytes # (Auto) 2.6x10^3/uL (1.0-4.8) Monocytes # (Auto) 1.2x10^3/uL (0.0-1.1) Eosinophils # (Auto) 0.1x10^3/uL (0.0-0.7) Basophils # (Auto) 0.1x10^3/uL (0.0-0.2) Platelet Estimate Decreased (ADEQUATE) Giant Platelets Mod Troponin I Quantitative 0.964ng/mL (0.000-0.055) Heparin Anti-Xa Act, Unfractionated 0.12IU/mL (0.30-0.70) Test 08/23/16 10:00 08/23/16 13:10 08/23/16 16:03 08/24/16 04:35 Heparin Anti-Xa Act, Unfractionated 0.44IU/mL (0.30-0.70) 0.46IU/mL (0.30-0.70) Sodium Level 138mmol/L (136-145) 139mmol/L (136-145) Potassium Level 4.5mmol/L (3.5-5.1) 4.3mmol/L (3.5-5.1) Chloride Level 102mmol/L (98-107) 101mmol/L (98-107) Carbon Dioxide Level 24mmol/L (21-32) 21mmol/L (21-32) Anion Gap 12 (6-14) 17 (6-14) Blood Urea Nitrogen 46mg/dL (8-26) 46mg/dL (8-26) Creatinine 2.2mg/dL (0.7-1.3) 1.9mg/dL (0.7-1.3) Estimated GFR (Cockcroft-Gault) 28.6 33.9 Glucose Level 150mg/dL (70-99) 148mg/dL (70-99) Calcium Level 8.8mg/dL (8.5-10.1) 9.0mg/dL (8.5-10.1) Troponin I Quantitative 0.738ng/mL (0.000-0.055) BUN/Creatinine Ratio 24 (6-20) Total Bilirubin 0.8mg/dL (0.2-1.0) Aspartate Amino Transf (AST/SGOT) 28U/L (15-37) Alanine Aminotransferase (ALT/SGPT) 21U/L (16-63) Alkaline Phosphatase 79U/L (46-116) Total Protein 7.1g/dL (6.4-8.2) Albumin 3.4g/dL (3.4-5.0) Albumin/Globulin Ratio 0.9 (1.0-1.7) Laboratory Tests Test 08/23/16 13:10 08/23/16 16:03 08/24/16 04:35 Sodium Level 138mmol/L (136-145) 139mmol/L (136-145) Potassium Level 4.5mmol/L (3.5-5.1) 4.3mmol/L (3.5-5.1) Chloride Level 102mmol/L (98-107) 101mmol/L (98-107) Carbon Dioxide Level 24mmol/L (21-32) 21mmol/L (21-32) Anion Gap 12 (6-14) 17 (6-14) Blood Urea Nitrogen 46mg/dL (8-26) 46mg/dL (8-26) Creatinine 2.2mg/dL (0.7-1.3) 1.9mg/dL (0.7-1.3) Estimated GFR (Cockcroft-Gault) 28.6 33.9 Glucose Level 150mg/dL (70-99) 148mg/dL (70-99) Calcium Level 8.8mg/dL (8.5-10.1) 9.0mg/dL (8.5-10.1) Troponin I Quantitative 0.738ng/mL (0.000-0.055) Heparin Anti-Xa Act, Unfractionated 0.46IU/mL (0.30-0.70) BUN/Creatinine Ratio 24 (6-20) Total Bilirubin 0.8mg/dL (0.2-1.0) Aspartate Amino Transf (AST/SGOT) 28U/L (15-37) Alanine Aminotransferase (ALT/SGPT) 21U/L (16-63) Alkaline Phosphatase 79U/L (46-116) Total Protein 7.1g/dL (6.4-8.2) Albumin 3.4g/dL (3.4-5.0) Albumin/Globulin Ratio 0.9 (1.0-1.7) Assessment/Plan Assessment/Plan Impression: dementia, exacerbated by hospital stay, no sign of stroke, central nervous system infection, seizures Recommendations: CT of the head Laboratory studies Definitive diagnosis of dementia is not appropriate in the acute hospital setting, he should follow up with neurology in 4-6 weeks for more thorough mental status testing I discussed my findings with the patient's daughter. Thank you for letting me help with the patient's care. JIE CHAPA MD Aug 24, 2016 10:13
[2016-08-24 11:00] VITALS: BP 141/119
--- NOTE | 2016-08-24 11:37 | PDOC ---
PROGRESS NOTES Chief Complaint Chief Complaint A/P 1 . CHEST PAIN, NSTEMI 2. ? Dementia/ AMS 3. h/o dm2 4. HTN 5. CKD 3. 6. ? CHF Plan off nitro gtt Chest pain resolved, CXR today IV lasix today awaiting cardiology recommendation s ECHO pending. Possible Cardiac cath in AM Follow renal functions labs reviewed d/w family at bedside History of Present Illness History of Present Illness confusion rapid breathing tachycardia Vitals Vitals Vital Signs Date Time Temp Pulse Resp B/P Pulse Ox O2 Delivery O2 Flow Rate FiO2 08/24/16 09:00 107 148/79 08/24/16 07:30 Nasal Cannula 2.0 08/24/16 07:00 98.0 26 96 98.0 Physical Exam General: Alert, Cooperative, No acute distress, Other (confusion ) Heart: Regular rate, Other (tachycardia, ) Lungs: Clear, Other (ralesa at baeses. ) Abdomen: Normal bowel sounds, Soft Extremities: No edema Skin: No significant lesion Labs LABS Laboratory Tests Test 08/23/16 13:10 08/23/16 16:03 08/24/16 04:35 Sodium Level 138mmol/L (136-145) 139mmol/L (136-145) Potassium Level 4.5mmol/L (3.5-5.1) 4.3mmol/L (3.5-5.1) Chloride Level 102mmol/L (98-107) 101mmol/L (98-107) Carbon Dioxide Level 24mmol/L (21-32) 21mmol/L (21-32) Anion Gap 12 (6-14) 17 (6-14) Blood Urea Nitrogen 46mg/dL (8-26) 46mg/dL (8-26) Creatinine 2.2mg/dL (0.7-1.3) 1.9mg/dL (0.7-1.3) Estimated GFR (Cockcroft-Gault) 28.6 33.9 Glucose Level 150mg/dL (70-99) 148mg/dL (70-99) Calcium Level 8.8mg/dL (8.5-10.1) 9.0mg/dL (8.5-10.1) Troponin I Quantitative 0.738ng/mL (0.000-0.055) Heparin Anti-Xa Act, Unfractionated 0.46IU/mL (0.30-0.70) BUN/Creatinine Ratio 24 (6-20) Total Bilirubin 0.8mg/dL (0.2-1.0) Aspartate Amino Transf (AST/SGOT) 28U/L (15-37) Alanine Aminotransferase (ALT/SGPT) 21U/L (16-63) Alkaline Phosphatase 79U/L (46-116) Total Protein 7.1g/dL (6.4-8.2) Albumin 3.4g/dL (3.4-5.0) Albumin/Globulin Ratio 0.9 (1.0-1.7) Assessment and Plan Assessmemt and Plan Problems Medical Problems: (1) Chest pain Status: Acute Problems: Comment Review of Relevant I have reviewed the following items jamison (where applicable) has been applied. Labs Laboratory Tests Test 08/22/16 17:39 08/22/16 18:00 08/22/16 18:15 08/23/16 01:00 Triglycerides Level 69mg/dL (0-150) Cholesterol Level 207mg/dL (0-200) LDL Cholesterol, Calculated 122mg/dL (0-100) VLDL Cholesterol, Calculated 14mg/dL (0-40) HDL Cholesterol 71mg/dL (40-60) Cholesterol/HDL Ratio 2.9 Sodium Level 143mmol/L (136-145) Potassium Level 4.4mmol/L (3.5-5.1) Chloride Level 105mmol/L (98-107) Carbon Dioxide Level 24mmol/L (21-32) Anion Gap 14 (6-14) Blood Urea Nitrogen 37mg/dL (8-26) Creatinine 1.8mg/dL (0.7-1.3) Estimated GFR (Cockcroft-Gault) 36.0 BUN/Creatinine Ratio 21 (6-20) Glucose Level 114mg/dL (70-99) Calcium Level 9.2mg/dL (8.5-10.1) Total Bilirubin 0.9mg/dL (0.2-1.0) Aspartate Amino Transf (AST/SGOT) 28U/L (15-37) Alanine Aminotransferase (ALT/SGPT) 21U/L (16-63) Alkaline Phosphatase 82U/L (46-116) Creatine Kinase 105U/L (39-308) Creatine Kinase MB (Mass) 4.4ng/mL (0.0-3.6) Creatine Kinase MB Relative Index 4.2% (0-4) Total Protein 7.4g/dL (6.4-8.2) Albumin 3.7g/dL (3.4-5.0) Albumin/Globulin Ratio 1.0 (1.0-1.7) White Blood Count 11.3x10^3/uL (4.0-11.0) Red Blood Count 4.22x10^6/uL (4.30-5.70) Hemoglobin 12.5g/dL (13.0-17.5) Hematocrit 38.4% (39.0-53.0) Mean Corpuscular Volume 91fL (79-100) Mean Corpuscular Hemoglobin 30pg (25-35) Mean Corpuscular Hemoglobin Concent 33g/dL (31-37) Red Cell Distribution Width 14.2% (11.5-14.5) Platelet Count 109x10^3/uL (140-400) Neutrophils (%) (Auto) 66% (31-73) Lymphocytes (%) (Auto) 23% (24-48) Monocytes (%) (Auto) 10% (0-9) Eosinophils (%) (Auto) 1% (0-3) Basophils (%) (Auto) 1% (0-3) Neutrophils # (Auto) 7.4x10^3uL (1.8-7.7) Lymphocytes # (Auto) 2.6x10^3/uL (1.0-4.8) Monocytes # (Auto) 1.2x10^3/uL (0.0-1.1) Eosinophils # (Auto) 0.1x10^3/uL (0.0-0.7) Basophils # (Auto) 0.1x10^3/uL (0.0-0.2) Platelet Estimate Decreased (ADEQUATE) Giant Platelets Mod Troponin I Quantitative 0.964ng/mL (0.000-0.055) Heparin Anti-Xa Act, Unfractionated 0.12IU/mL (0.30-0.70) Test 08/23/16 10:00 08/23/16 13:10 08/23/16 16:03 08/24/16 04:35 Heparin Anti-Xa Act, Unfractionated 0.44IU/mL (0.30-0.70) 0.46IU/mL (0.30-0.70) Sodium Level 138mmol/L (136-145) 139mmol/L (136-145) Potassium Level 4.5mmol/L (3.5-5.1) 4.3mmol/L (3.5-5.1) Chloride Level 102mmol/L (98-107) 101mmol/L (98-107) Carbon Dioxide Level 24mmol/L (21-32) 21mmol/L (21-32) Anion Gap 12 (6-14) 17 (6-14) Blood Urea Nitrogen 46mg/dL (8-26) 46mg/dL (8-26) Creatinine 2.2mg/dL (0.7-1.3) 1.9mg/dL (0.7-1.3) Estimated GFR (Cockcroft-Gault) 28.6 33.9 Glucose Level 150mg/dL (70-99) 148mg/dL (70-99) Calcium Level 8.8mg/dL (8.5-10.1) 9.0mg/dL (8.5-10.1) Troponin I Quantitative 0.738ng/mL (0.000-0.055) BUN/Creatinine Ratio 24 (6-20) Total Bilirubin 0.8mg/dL (0.2-1.0) Aspartate Amino Transf (AST/SGOT) 28U/L (15-37) Alanine Aminotransferase (ALT/SGPT) 21U/L (16-63) Alkaline Phosphatase 79U/L (46-116) Total Protein 7.1g/dL (6.4-8.2) Albumin 3.4g/dL (3.4-5.0) Albumin/Globulin Ratio 0.9 (1.0-1.7) Laboratory Tests Test 08/23/16 13:10 08/23/16 16:03 08/24/16 04:35 Sodium Level 138mmol/L (136-145) 139mmol/L (136-145) Potassium Level 4.5mmol/L (3.5-5.1) 4.3mmol/L (3.5-5.1) Chloride Level 102mmol/L (98-107) 101mmol/L (98-107) Carbon Dioxide Level 24mmol/L (21-32) 21mmol/L (21-32) Anion Gap 12 (6-14) 17 (6-14) Blood Urea Nitrogen 46mg/dL (8-26) 46mg/dL (8-26) Creatinine 2.2mg/dL (0.7-1.3) 1.9mg/dL (0.7-1.3) Estimated GFR (Cockcroft-Gault) 28.6 33.9 Glucose Level 150mg/dL (70-99) 148mg/dL (70-99) Calcium Level 8.8mg/dL (8.5-10.1) 9.0mg/dL (8.5-10.1) Troponin I Quantitative 0.738ng/mL (0.000-0.055) Heparin Anti-Xa Act, Unfractionated 0.46IU/mL (0.30-0.70) BUN/Creatinine Ratio 24 (6-20) Total Bilirubin 0.8mg/dL (0.2-1.0) Aspartate Amino Transf (AST/SGOT) 28U/L (15-37) Alanine Aminotransferase (ALT/SGPT) 21U/L (16-63) Alkaline Phosphatase 79U/L (46-116) Total Protein 7.1g/dL (6.4-8.2) Albumin 3.4g/dL (3.4-5.0) Albumin/Globulin Ratio 0.9 (1.0-1.7) Medications Current Medications Heparin Sodium/ Dextrose 500 ml @ 0 mls/hr 1X ONCE IV ; Start 08/22/16 at 16:45 ; Stop 08/22/16 at 16:46; Status Cancel Metoprolol Tartrate (Lopressor) 25 mg BID PO Last administered on 08/23/16 08: 41; Start 08/22/16 at 17:00; Stop 08/23/16 at 10:44; Status DC Ticagrelor (Brilinta) 90 mg BID PO ; Start 08/22/16 at 17:00; Status Cancel Aspirin (Children'S Aspirin) 81 mg DAILYWBKFT PO Last administered on 08:59; Start 08/23/16 at 08:00 Aspirin 324 mg 324 mg 1X ONCE PO Last administered on 08/22/16 17:44; Start 08/22/16 at 17:30; Stop 08/22/16 at 17:31; Status DC Heparin Sodium/ Dextrose 500 ml @ 0 mls/hr CONT PRN IV SEE I/O RECORD; Start at 17:15; Status Cancel Heparin Sodium/ Dextrose 500 ml @ 0 mls/hr CONT PRN IV SEE I/O RECORD; Start at 17:30; Status Cancel Ticagrelor (Brilinta) 90 mg BID@05,17 PO Last administered on 08/23/16 17:15; Start 08/23/16 at 05:00 Ticagrelor 180 mg 180 mg 1X ONCE PO Last administered on 08/22/16 17:44; Start 08/22/16 at 18:00; Stop 08/22/16 at 18:01; Status DC Heparin Sodium/ Dextrose 500 ml @ 0 mls/hr CONT PRN IV SEE I/O RECORD Last administered on 08/23/16 03:16; Start 08/22/16 at 18:00; Stop 08/24/16 at 09:34 ; Status DC Heparin Sodium (Porcine) 1,650 unit PRN Q6HRS PRN IV FOR UFH LEVEL LESS THAN 0.2 Last administered on 08/23/16 03:17; Start 08/22/16 at 18:00; Stop at 09:34; Status DC Ondansetron HCl (Zofran) 4 mg PRN Q6HRS PRN IV NAUSEA/VOMITING; Start 08/22/16 at 17:45 Morphine Sulfate 1 mg PRN Q1HR PRN IV PAIN Last administered on 08/24/16 05:15 ; Start 08/22/16 at 17:45 Acetaminophen/ Hydrocodone Bitart (Lortab 5/325) 1 tab PRN Q4HRS PRN PO MILD PAIN, 2ND CHOICE Last administered on 08/22/16 20:13; Start 08/22/16 at 17:45 Acetaminophen (Tylenol) 650 mg PRN Q6HRS PRN PO Headaches, Temp > 101.5F Last administered on 08/23/16 07:30; Start 08/22/16 at 17:45 Atorvastatin Calcium 40 mg 40 mg QHS PO Last administered on 08/22/16 20:48; Start 08/22/16 at 21:00 Nitroglycerin/ Dextrose (Nitroglycerin Drip) 250 ml @ 0 mls/hr CONT PRN IV SEE I/O RECORD Last administered on 08/22/16 22:43; Start 08/22/16 at 22:15; Stop 08/24/16 at 09:34; Status DC Metoprolol Tartrate (Lopressor) 25 mg Q6HRS PO Last administered on 08/24/16 09:00; Start 08/23/16 at 12:00; Stop 08/24/16 at 09:34; Status DC Haloperidol Lactate (Haldol) 1 mg PRN Q4HRS PRN IVP AGITATION Last administered on 08/23/16 19:49; Start 08/23/16 at 14:00 Metoprolol Tartrate (Lopressor) 2.5 mg 1X ONCE IVP Last administered on 18:47; Start 08/23/16 at 19:00; Stop 08/23/16 at 19:01; Status DC Lorazepam (Ativan) 2 mg PRN Q1HR PRN IV For CIWA 8-14 Last administered on 08/23 21:47; Start 08/23/16 at 21:30 Albuterol Sulfate (Ventolin Neb Soln) 2.5 mg 1X ONCE NEB Last administered on 08/24/16 05:58; Start 08/24/16 at 06:00; Stop 08/24/16 at 06:01; Status DC Info (Do NOT chart on this placeholder) 1 each PRN 1X PRN MC SEE COMMENTS; Start 08/24/16 at 09:00; Status UNV Influenza Virus Vaccine Quadrival (Fluarix Quad [id number] Syringe) 0.5 ml ONCE ONCE VAX IM ; Start 08/24/16 at 09:15; Stop 08/24/16 at 09:16; Status DC Metoprolol Tartrate (Lopressor) 5 mg Q6HRS IVP ; Start 08/24/16 at 12:00 Vitals/I & O Vital Sign - Last 24 Hours 08/23/16 08/23/16 08/23/16 08/23/16 14:06 15:29 17:15 17:17 Pulse 103 103 Resp 18 16 18 B/P 114/73 154/93 O2 Delivery Nasal Cannula Room Air Nasal Cannula O2 Flow Rate 2.0 2.0 08/23/16 08/23/16 08/23/16 08/23/16 17:47 18:47 19:30 20:00 Temp 97.3 97.3 Pulse 100 94 Resp 20 20 B/P 127/77 128/82 Pulse Ox 94 O2 Delivery Nasal Cannula Nasal Cannula O2 Flow Rate 2.0 2.0 08/24/16 08/24/16 08/24/16 08/24/16 03:00 05:15 05:45 05:58 Temp 97.3 97.3 Pulse 96 B/P 130/97 Pulse Ox 95 95 93 93 O2 Delivery Nasal Cannula Nasal Cannula Nasal Cannula Nasal Cannula O2 Flow Rate 2.0 2.0 3.0 3.0 08/24/16 08/24/16 08/24/16 07:00 07:30 09:00 Temp 98.0 98.0 Pulse 107 107 Resp 26 B/P 148/79 148/79 Pulse Ox 96 O2 Delivery Nasal Cannula Nasal Cannula O2 Flow Rate 2.0 2.0 Intake and Output 08/23/16 08/23/16 08/24/16 15:00 23:00 07:00 Intake Total 663.5 ml 100 ml Output Total 100 ml 300 ml 0 ml Balance -100 ml 363.5 ml 100 ml TANYA MELTON MD Aug 24, 2016 11:37
[2016-08-24] MEDS ORDERED: FUROSEMIDE 20 MG/2 ML VIAL IVP ONE (12:30)
[2016-08-24] MEDS: METOPROLOL TARTRATE 5 MG/5 ML VIAL. IVP SCH ×2 (13:27→18:00)
--- NOTE | 2016-08-24 14:37 | RAD ---
Indication: Short of breath. Technique: Upright portable chest radiograph was obtained. No comparison is available. Findings: The heart is upper limits of normal in size. The pulmonary vasculature is mildly cephalized. Small effusions bilaterally are noted. There is atheromatous disease in the thoracic aorta. Leads overlie the patient. Impression: Findings most suggestive of CHF. Small pleural effusions.
[2016-08-24 15:00] VITALS: BP 138/83
--- NOTE | 2016-08-24 16:45 | CARD ---
APPROVED REPORT EXAM: Two-dimensional and M-mode echocardiogram with Doppler and color Doppler. Other Information Quality : Technically LimitedHR: 101bpm Rhythm : Arrhythmmia INDICATION Cardiomyopathy 2D DIMENSIONS RVDd1.9 (2.9-3.5cm)Left Atrium(2D)4.0 (1.6-4.0cm) IVSd0.9 (0.7-1.1cm)Aortic Root(2D)2.7 (2.0-3.7cm) LVDd6.0 (3.9-5.9cm)LVOT Diameter2.1 (1.8-2.4cm) PWd1.0 (0.7-1.1cm)LVDs5.6 (2.5-4.0cm) FS (%) 7.3 %SV29.2 ml LVEF(%)15.9 (>50%) Mitral Valve MV E [id number]/sMV DECEL [id number] LEFT VENTRICLE The Left Ventricle is mildly dilated. There is normal left ventricular wall thickness. Left ventricle systolic function is severely impaired. The Ejection Fraction is 15-20%. There is severe global hypo kinesis of the left ventricle. Tissue Doppler imaging reveals severe left ventricular diastolic dysfu nction. RIGHT VENTRICLE The right ventricle is normal size. The right ventricular systolic function is normal. ATRIA The left atrium is moderately dilated. The right atrium size is normal. AORTIC VALVE The aortic valve is moderately sclerotic, not well visualized. Doppler and Color Flow revealed no si gnificant aortic regurgitation. Cannot rule out moderate aortic stenosis due to lack of optimal image s. MITRAL VALVE Mitral annular calcification is mild. The mitral valve leaflets are thickened. There is no evidence o f mitral valve prolapse. There is no mitral valve stenosis. Doppler and Color Flow revealed mild mitr al regurgitation. TRICUSPID VALVE The tricuspid valve is not well visualized. Doppler and Color Flow revealed no tricuspid valve regurg itation noted. PULMONIC VALVE Doppler and Color Flow revealed no pulmonic valvular regurgitation. There is no pulmonic valvular beata nosis. GREAT VESSELS The aortic root is normal in size. The ascending aorta is normal in size. The patient did not allow t o for subcostal evaluation. PERICARDIAL EFFUSION There is large left pleural effusion. There is no evidence of significant pericardial effusion. Critical Notification Critical Value: No <Conclusion> Left ventricle systolic function is severely impaired. The Ejection Fraction is 15-20%. There is severe global hypokinesis of the left ventricle. Cannot rule out moderate aortic stenosis due to lack of optimal images. There is large left pleural effusion.
--- NOTE | 2016-08-24 16:54 | PDOC2 ---
PALLIATIVE CARE Palliative Care Note Palliative Care Consult requested to address goals of care. Patient alert, confused. Met with step-daughter Salena and step son Gigi Code Status; DNR/DNI Discussed options for care. Family considering hospice but wants to consider overnight before making final decisions. Will meet again in BHARGAVI Billy Aug 24, 2016 16:54
[2016-08-24 19:15] VITALS: BP 135/86
[2016-08-24] MEDS: ATORVASTATIN CALCIUM 40 MG TABLET. PO SCH (21:00)
[2016-08-24] MEDS: LORAZEPAM 2 MG/ML VIAL IV PRN (22:03)
[2016-08-24 23:18] VITALS: BP 124/73
[2016-08-25 03:02] VITALS: BP 135/90
[2016-08-25] MEDS: TICAGRELOR 90 MG TABLET. PO SCH ×2 (05:00→17:00)
[2016-08-25] MEDS: METOPROLOL TARTRATE 5 MG/5 ML VIAL. IVP SCH ×3 (06:01→13:20)
[2016-08-25 07:00] VITALS: BP 124/76
[2016-08-25 08:54] LABS: VITAMIN-B12 > 2000 pg/mL (247-911)
[2016-08-25 08:55] LABS: FOLATE > 24.00 ng/ml (3.2-20.0)
[2016-08-25] MEDS: ASPIRIN 81 MG TAB.CHEW PO SCH (09:46)
[2016-08-25] MEDS: LORAZEPAM 2 MG/ML VIAL IV PRN ×2 (09:47→15:24)
--- NOTE | 2016-08-25 10:06 | PDOC2 ---
PALLIATIVE CARE Palliative Care Note Palliative Care Patient alert. Mild-mod amount of respiratory distress. Non productive cough Spoke with Salena step-daughter. Family has decided on [facility]. Family aware of financial obligation of room and board. Outside the Hospital DNR/DNI signed. Alma SUTHERLAND aware and will assist with discharge plans BHARGAVI ZAPATA Aug 25, 2016 10:06
[2016-08-25 11:41] VITALS: BP 150/84
--- NOTE | 2016-08-25 11:56 | PDOC ---
PROGRESS NOTES Assessment Problems Medical Problems: (1) Chest pain Status: Acute Dementia, exacerbated by hospital stay, no sign of stroke, central nervous system infection, seizures. Most likely this is Alzheimer's He has been refusing CT head studies Laboratory studies for other causes of dementia negative so far. Plan Await CT head Definitive diagnosis of dementia is not appropriate in the acute hospital setting, he should follow up with neurology in 4-6 weeks for more thorough mental status testing Subjective none Objective Vital Signs Date Time Temp Pulse Resp B/P Pulse Ox O2 Delivery O2 Flow Rate FiO2 08/25/16 11:41 98.4 102 23 150/84 92 Nasal Cannula 3.5 98.4 Intake and Output 08/25/16 07:00 Intake Total 0 ml Output Total 150 ml Balance -150 ml Intake Oral 0 ml Output Urine Total 150 ml # Voids 4 PHYSICAL EXAM Alert. Oriented only to person. PERRL. EOMI. CN: no focal findings. Muscle tone: normal. Muscle strength: 4/5 DTR: 2+. He has bilateral grasp reflexes. Plantar reflex: flexor Gait: not examined in bed. Sensory exam: no abnormal findings. No cerebellar signs elicited. Review of Relevant I have reviewed the following items jamison (where applicable) has been applied. Labs Laboratory Tests Test 08/23/16 13:10 08/23/16 16:03 08/24/16 04:35 08/25/16 05:15 Sodium Level 138mmol/L (136-145) 139mmol/L (136-145) Potassium Level 4.5mmol/L (3.5-5.1) 4.3mmol/L (3.5-5.1) Chloride Level 102mmol/L (98-107) 101mmol/L (98-107) Carbon Dioxide Level 24mmol/L (21-32) 21mmol/L (21-32) Anion Gap 12 (6-14) 17 (6-14) Blood Urea Nitrogen 46mg/dL (8-26) 46mg/dL (8-26) Creatinine 2.2mg/dL (0.7-1.3) 1.9mg/dL (0.7-1.3) Estimated GFR (Cockcroft-Gault) 28.6 33.9 Glucose Level 150mg/dL (70-99) 148mg/dL (70-99) Calcium Level 8.8mg/dL (8.5-10.1) 9.0mg/dL (8.5-10.1) Troponin I Quantitative 0.738ng/mL (0.000-0.055) Heparin Anti-Xa Act, Unfractionated 0.46IU/mL (0.30-0.70) BUN/Creatinine Ratio 24 (6-20) Total Bilirubin 0.8mg/dL (0.2-1.0) Aspartate Amino Transf (AST/SGOT) 28U/L (15-37) Alanine Aminotransferase (ALT/SGPT) 21U/L (16-63) Alkaline Phosphatase 79U/L (46-116) Total Protein 7.1g/dL (6.4-8.2) Albumin 3.4g/dL (3.4-5.0) Albumin/Globulin Ratio 0.9 (1.0-1.7) Erythrocyte Sedimentation Rate 15 (0-15) Vitamin B12 Level > 2000pg/mL (247-911) Serum Folate > 24.00ng/ml (3.2-20.0) Thyroid Stimulating Hormone (TSH) 1.167uIU/mL (0.358-3.74) Laboratory Tests Test 08/25/16 05:15 Erythrocyte Sedimentation Rate 15 (0-15) Vitamin B12 Level > 2000pg/mL (247-911) Serum Folate > 24.00ng/ml (3.2-20.0) Thyroid Stimulating Hormone (TSH) 1.167uIU/mL (0.358-3.74) Medications Current Medications Heparin Sodium/ Dextrose 500 ml @ 0 mls/hr 1X ONCE IV ; Start 08/22/16 at 16:45 ; Stop 08/22/16 at 16:46; Status Cancel Metoprolol Tartrate (Lopressor) 25 mg BID PO Last administered on 08/23/16 08: 41; Start 08/22/16 at 17:00; Stop 08/23/16 at 10:44; Status DC Ticagrelor (Brilinta) 90 mg BID PO ; Start 08/22/16 at 17:00; Status Cancel Aspirin (Children'S Aspirin) 81 mg DAILYWBKFT PO Last administered on 09:46; Start 08/23/16 at 08:00 Aspirin 324 mg 324 mg 1X ONCE PO Last administered on 08/22/16 17:44; Start 08/22/16 at 17:30; Stop 08/22/16 at 17:31; Status DC Heparin Sodium/ Dextrose 500 ml @ 0 mls/hr CONT PRN IV SEE I/O RECORD; Start at 17:15; Status Cancel Heparin Sodium/ Dextrose 500 ml @ 0 mls/hr CONT PRN IV SEE I/O RECORD; Start at 17:30; Status Cancel Ticagrelor (Brilinta) 90 mg BID@05,17 PO Last administered on 08/24/16 17:59; Start 08/23/16 at 05:00 Ticagrelor 180 mg 180 mg 1X ONCE PO Last administered on 08/22/16 17:44; Start 08/22/16 at 18:00; Stop 08/22/16 at 18:01; Status DC Heparin Sodium/ Dextrose 500 ml @ 0 mls/hr CONT PRN IV SEE I/O RECORD Last administered on 08/23/16 03:16; Start 08/22/16 at 18:00; Stop 08/24/16 at 09:34 ; Status DC Heparin Sodium (Porcine) 1,650 unit PRN Q6HRS PRN IV FOR UFH LEVEL LESS THAN 0.2 Last administered on 08/23/16 03:17; Start 08/22/16 at 18:00; Stop at 09:34; Status DC Ondansetron HCl (Zofran) 4 mg PRN Q6HRS PRN IV NAUSEA/VOMITING; Start 08/22/16 at 17:45 Morphine Sulfate 1 mg PRN Q1HR PRN IV PAIN Last administered on 08/24/16 05:15 ; Start 08/22/16 at 17:45 Acetaminophen/ Hydrocodone Bitart (Lortab 5/325) 1 tab PRN Q4HRS PRN PO MILD PAIN, 2ND CHOICE Last administered on 08/22/16 20:13; Start 08/22/16 at 17:45 Acetaminophen (Tylenol) 650 mg PRN Q6HRS PRN PO Headaches, Temp > 101.5F Last administered on 08/23/16 07:30; Start 08/22/16 at 17:45 Atorvastatin Calcium 40 mg 40 mg QHS PO Last administered on 08/22/16 20:48; Start 08/22/16 at 21:00 Nitroglycerin/ Dextrose (Nitroglycerin Drip) 250 ml @ 0 mls/hr CONT PRN IV SEE I/O RECORD Last administered on 08/22/16 22:43; Start 08/22/16 at 22:15; Stop 08/24/16 at 09:34; Status DC Metoprolol Tartrate (Lopressor) 25 mg Q6HRS PO Last administered on 08/24/16 09:00; Start 08/23/16 at 12:00; Stop 08/24/16 at 09:34; Status DC Haloperidol Lactate (Haldol) 1 mg PRN Q4HRS PRN IVP AGITATION Last administered on 08/23/16 19:49; Start 08/23/16 at 14:00 Metoprolol Tartrate (Lopressor) 2.5 mg 1X ONCE IVP Last administered on 18:47; Start 08/23/16 at 19:00; Stop 08/23/16 at 19:01; Status DC Lorazepam (Ativan) 2 mg PRN Q1HR PRN IV For CIWA 8-14 Last administered on 08/25 09:47; Start 08/23/16 at 21:30 Albuterol Sulfate (Ventolin Neb Soln) 2.5 mg 1X ONCE NEB Last administered on 08/24/16 05:58; Start 08/24/16 at 06:00; Stop 08/24/16 at 06:01; Status DC Info (Do NOT chart on this placeholder) 1 each PRN 1X PRN MC SEE COMMENTS; Start 08/24/16 at 09:00; Status UNV Influenza Virus Vaccine Quadrival (Fluarix Quad [id number] Syringe) 0.5 ml ONCE ONCE VAX IM ; Start 08/24/16 at 09:15; Stop 08/24/16 at 09:16; Status DC Metoprolol Tartrate (Lopressor) 5 mg Q6HRS IVP Last administered on 08/25/16 06:01; Start 08/24/16 at 12:00 Furosemide (Lasix) 20 mg 1X ONCE IVP Last administered on 08/24/16 13:31; Start 08/24/16 at 12:30; Stop 08/24/16 at 12:32; Status DC Vitals/I & O Vital Sign - Last 24 Hours 08/24/16 08/24/16 08/24/16 08/24/16 13:27 15:00 18:00 19:15 Temp 98.5 98.4 98.5 98.4 Pulse 122 109 109 102 Resp 22 24 B/P 141/119 138/83 138/83 135/86 Pulse Ox 93 96 O2 Delivery Nasal Cannula Nasal Cannula O2 Flow Rate 2.0 4.0 08/24/16 08/24/16 08/25/16 08/25/16 20:00 23:18 00:00 03:02 Temp 98.5 97.9 98.5 97.9 Pulse 105 99 99 Resp 24 16 B/P 124/73 135/90 135/90 Pulse Ox 94 95 O2 Delivery Nasal Cannula Nasal Cannula Nasal Cannula O2 Flow Rate 4.0 3.5 3.5 08/25/16 08/25/16 08/25/16 08/25/16 06:01 07:00 08:00 11:41 Temp 98.4 98.4 98.4 98.4 Pulse 99 96 102 Resp B/P 135/90 124/76 150/84 Pulse Ox 90 92 O2 Delivery Nasal Cannula Nasal Cannula Nasal Cannula O2 Flow Rate 3.5 4.0 3.5 Intake and Output 08/24/16 08/24/16 08/25/16 15:00 23:00 07:00 Intake Total 0 ml 0 ml Output Total 150 ml Balance -150 ml 0 ml JIE CHAPA MD Aug 25, 2016 11:55
[2016-08-25 14:34] VITALS: BP 136/81
--- NOTE | 2016-08-25 15:25 | PDOC2 ---
PALLIATIVE CARE Palliative Care Note Palliative Care Spoke with Salena regarding prognosis. Gigi and Salena working on financial issues. Paged by Alma SUTHERALND who has spoke with family and arranged IP Hospice BHARGAVI Levine Aug 25, 2016 15:25
[2016-08-25] MEDS ORDERED: IV NORMAL SALINE 1000ML BAG 1,000 ML IV SCH (15:30)
== END 2016-08-25 18:22 | disposition hospice, inpatient (51) | DRG 280 ==
LOC: CVICU 15:53
PROVIDERS: ADMIT Internal Medicine; ATTEND Internal Medicine
DX: I21.4 Non-ST elevation (NSTEMI) myocardial infarction (principal); N17.0 Acute kidney failure with tubular necrosis; I42.9 Cardiomyopathy, unspecified; I50.20 Unspecified systolic (congestive) heart failure; I13.0 Hypertensive heart and chronic kidney disease with heart failure and stage 1 through stage 4 chronic kidney disease, or unspecified chronic kidney disease; E11.22 Type 2 diabetes mellitus with diabetic chronic kidney disease; F03.90 Unspecified dementia, unspecified severity, without behavioral disturbance, psychotic disturbance, mood disturbance, and anxiety; Z51.5 Encounter for palliative care; Z66 Do not resuscitate; N18.3 Chronic kidney disease, stage 3 (moderate); I12.9 Hypertensive chronic kidney disease with stage 1 through stage 4 chronic kidney disease, or unspecified chronic kidney disease; M19.90 Unspecified osteoarthritis, unspecified site; Z83.3 Family history of diabetes mellitus; Z85.038 Personal history of other malignant neoplasm of large intestine; Z90.49 Acquired absence of other specified parts of digestive tract; Z90.2 Acquired absence of lung [part of]
CPT/HCPCS: 36415; 71010; 80048; 80053; 80061; 82553; 82607; 82746; 83036; 84443; 84484; 85007; 85027; 85520; 85651; 93005; 93306; 94640; J1630; J2060; J2270; J3490